=== PATIENT | female | born 1975 | race Hispanic/Latino ===

== ENCOUNTER 2017-09-17 17:29 | Outpatient (CLI) | payer BC ==
[2017-09-17 17:51] LABS: Blood Urea Nitrogen 18 mg/dL (7-17)
== END 2017-09-17 17:30 | disposition home or self-care (01) ==
LOC: LAB 17:29
PROVIDERS: ATTEND Obstetrics & Gynecology
DX: R10.2 Pelvic and perineal pain (principal)
CPT/HCPCS: 36415; 82565; 84520